=== PATIENT | male | born 1955 | race Caucasian/White ===

== ENCOUNTER 2017-06-19 16:30 | Emergency (ER) | payer OTHER ==
[~2017-06-19] VITALS: Ht 172.7 cm; Wt 122.0 kg
[~2017-06-19 16:30] MED LIST: AMOX1TAB12 PO; CATAFLAM50 MG PO; CEFALEXIN; METFORMIN HCL500 MG; PROTONIX40 MG PO; TENORMIN50 MG
[2017-06-19] MEDS ORDERED: LOSARTAN POTASS50 MG (16:43)
[2017-06-19] MEDS ORDERED: ALLOPURINOL100 MG (16:44)
[2017-06-19] MEDS ORDERED: DICLOFENAC SODI50 MG PO (20:05)
[2017-06-19] MEDS ORDERED: LEVAQUIN750 MG PO (20:05)
== END 2017-06-19 20:29 | disposition home or self-care (01) ==
LOC: ER 16:30
DX: L03.032 Cellulitis of left toe (principal)

== ENCOUNTER 2019-12-28 13:46 | Outpatient (CLI) | payer OTHER ==
[~2019-12-28 13:46] MED LIST changes: +ALLOPURINOL100 MG; +DICLOFENAC SODI50 MG PO; +LEVAQUIN750 MG PO; +LOSARTAN POTASS50 MG
== END 2019-12-28 13:50 | disposition home or self-care (01) ==
LOC: RAD 13:46
PROVIDERS: ATTEND Orthopaedic Surgery
DX: M16.12 Unilateral primary osteoarthritis, left hip (principal); Z76.89 Persons encountering health services in other specified circumstances

== ENCOUNTER 2019-12-29 12:03 | Outpatient (CLI) | payer OTHER | END 2019-12-29 12:22 | disposition home or self-care (01) | LOC: LAB 12:03 | PROVIDERS: ATTEND Orthopaedic Surgery | DX: D64.89 Other specified anemias (principal); E88.89 Other specified metabolic disorders; D68.8 Other specified coagulation defects; N39.0 Urinary tract infection, site not specified; Z22.322 Carrier or suspected carrier of Methicillin resistant Staphylococcus aureus; I49.8 Other specified cardiac arrhythmias; I10 Essential (primary) hypertension ==

== ENCOUNTER 2020-01-02 11:24 | Outpatient (CLI) | payer OTHER | END 2020-01-02 11:29 | disposition home or self-care (01) | LOC: RAD 11:24 | PROVIDERS: ATTEND Orthopaedic Surgery | DX: M16.0 Bilateral primary osteoarthritis of hip (principal) ==

== ENCOUNTER → 2020-01-02 | Outpatient (CLI) | payer OTHER | END | disposition home or self-care (01) | LOC: TOM 12:20 | PROVIDERS: ATTEND Orthopaedic Surgery | DX: M16.0 Bilateral primary osteoarthritis of hip (principal) ==

== ENCOUNTER 2020-08-01 15:11 | Outpatient (CLI) | payer OTHER | END 2020-08-01 15:18 | disposition home or self-care (01) | LOC: RAD 15:11 | PROVIDERS: ATTEND Orthopaedic Surgery | DX: Z96.642 Presence of left artificial hip joint (principal) ==

== ENCOUNTER → 2020-08-09 14:06 | Outpatient (CLI) | payer OTHER | END | disposition home or self-care (01) | LOC: LAB 14:06 | PROVIDERS: ATTEND Physical Medicine & Rehabilitation | DX: R05 Cough (principal); R50.9 Fever, unspecified; R06.02 Shortness of breath; Z03.818 Encounter for observation for suspected exposure to other biological agents ruled out; J12.82 Pneumonia due to coronavirus disease 2019; M35.81 Multisystem inflammatory syndrome; M35.89 Other specified systemic involvement of connective tissue; Z11.52 Encounter for screening for COVID-19 ==

== ENCOUNTER → 2022-05-15 10:51 | Outpatient (CLI) | payer OTHER ==
[~2022-05-15 10:51] MED LIST changes: +ATACAND HCT 321 EACH PO; +BAYER THERAPY325 MG PO; +CELEBREX50 MG PO; +CELECOXIB200 MG; +DICLOFENAC POTA50 MG; +DICLOFENAC SOD100 GM; +ELIQUIS5 MG; +FLONASE16 GM; +GABAPENTIN100 M2; +METFORMIN HCL500 M3 PO; +MONTELUKAST SOD10 MG; +NEXIUM5 MG; +OMEGA-3 ACID ETH1 GM; +TENORMIN50 M1; +TENORMIN50 M1 PO; +TYLENOL ARTHRI650 MG PO; +ULTRAM50 MG PO; +VERAPAMIL HCL120 M3; +XARELTO10 M1; +ZYLOPRIM300 MG PO
== END | disposition home or self-care (01) ==
LOC: LAB 10:51
PROVIDERS: ATTEND Orthopaedic Surgery
DX: D64.89 Other specified anemias (principal); M06.4 Inflammatory polyarthropathy; E88.89 Other specified metabolic disorders; N39.0 Urinary tract infection, site not specified; Z96.641 Presence of right artificial hip joint

== ENCOUNTER 2022-05-29 10:27 | Outpatient (CLI) | payer OTHER | END 2022-05-29 10:47 | disposition home or self-care (01) | LOC: TOM 10:27 | PROVIDERS: ATTEND Orthopaedic Surgery | DX: M25.551 Pain in right hip (principal); K40.20 Bilateral inguinal hernia, without obstruction or gangrene, not specified as recurrent; K57.90 Diverticulosis of intestine, part unspecified, without perforation or abscess without bleeding | CPT/HCPCS: 73723 ==